=== PATIENT | female | born 2000 | race Two or more races ===

== ENCOUNTER 2022-06-23 18:30 | Emergency (ER) | payer OTHER ==
[~2022-06-23] VITALS: Ht 170.2 cm; Wt 54.4 kg
== END 2022-06-23 21:13 | disposition home or self-care (01) ==
LOC: ER 18:30
DX: S90.415A Abrasion, left lesser toe(s), initial encounter (principal); X58.XXXA Exposure to other specified factors, initial encounter; Y93.9 Activity, unspecified; Y92.9 Unspecified place or not applicable; Y99.9 Unspecified external cause status